=== PATIENT | female | born 1930 | race Caucasian/White ===

== ENCOUNTER → 2016-04-22 | Outpatient (CLI) | payer MEDICARE, BC ==
[~2016-04-22] MED LIST: ALLEGRA 180MG180 MG PO; ASPIRIN E.C. 8181 MG PO; ATENOLOL25 MG PO; ATENOLOL50 MG PO; CETIRIZINE PO; COZAAR100 MG PO; FLONASE ALLERG9.9 ML NS; FLONASE0.05 MG/AC NS; GOOD SENSE ASPI81 M1 PO; ISOSORBIDE DINI30 M1 PO; NORCO 325 MG-51 TA1 PO; PLAVIX 75MG TAB75 MG PO; PRAVACHOL 20MG20 MG PO; PRAVACHOL20 MG PO; PROAIR HFA0.09 MG/AC IH; REQUIP0.25 M1 PO; TESSALON P100 MG/CAP PO; TYLENOL 500MG500 MG PO; TYLENOL EXTRA500 M1 PO; XANAX0.25 MG PO
== END ==
LOC: MAMMO 09:56
DX: Z12.31 Encounter for screening mammogram for malignant neoplasm of breast (principal)
CPT/HCPCS: G0202

== ENCOUNTER → 2016-04-22 | Outpatient (CLI) | payer MEDICARE, BC | LOC: RAD 10:01 | DX: Z13.820 Encounter for screening for osteoporosis (principal); I89.0 Lymphedema, not elsewhere classified; M81.0 Age-related osteoporosis without current pathological fracture; M85.851 Other specified disorders of bone density and structure, right thigh ==

== ENCOUNTER → 2016-05-17 | Outpatient (CLI) | payer MEDICARE, BC | LOC: RAD 14:54 | DX: M54.42 Lumbago with sciatica, left side (principal); G89.29 Other chronic pain; R93.7 Abnormal findings on diagnostic imaging of other parts of musculoskeletal system ==

== ENCOUNTER 2016-05-22 18:54 | Emergency (ER) | payer MEDICARE, BC ==
[~2016-05-22 18:54] MED LIST changes: -ASPIRIN E.C. 8181 MG PO; -ATENOLOL50 MG PO; -CETIRIZINE PO; -COZAAR100 MG PO; -FLONASE ALLERG9.9 ML NS; -ISOSORBIDE DINI30 M1 PO; -PLAVIX 75MG TAB75 MG PO; -PRAVACHOL 20MG20 MG PO; -PROAIR HFA0.09 MG/AC IH; -REQUIP0.25 M1 PO; -TYLENOL 500MG500 MG PO
[2016-05-22] MEDS ORDERED: ATENOLOL50 MG PO (19:38)
[2016-05-22] MEDS ORDERED: PLAVIX 75MG TAB75 MG PO (19:38)
[2016-05-22] MEDS ORDERED: ISOSORBIDE DINI30 M1 PO (19:39)
[2016-05-22] MEDS ORDERED: ASPIRIN E.C. 8181 MG PO (19:40)
[2016-05-22] MEDS ORDERED: PRAVACHOL 20MG20 MG PO (19:40)
[2016-05-22] MEDS ORDERED: COZAAR100 MG PO (19:41)
[2016-05-22] MEDS ORDERED: REQUIP0.25 M1 PO (19:41)
[2016-05-22] MEDS ORDERED: TYLENOL 500MG500 MG PO (19:42)
[2016-05-22] MEDS ORDERED: FLONASE ALLERG9.9 ML NS (19:42)
[2016-05-22] MEDS ORDERED: CETIRIZINE PO (19:42)
[2016-05-22] MEDS ORDERED: PROAIR HFA0.09 MG/AC IH (19:43)
[2016-05-22 20:58] VITALS: BP 195/95
== END 2016-05-22 21:07 | disposition home or self-care (01) ==
LOC: ED 18:54
DX: K59.00 Constipation, unspecified (principal)

== ENCOUNTER → 2017-08-24 | Outpatient (CLI) | payer MEDICARE, BC ==
[~2017-08-24] MED LIST changes: +ASPIRIN E.C. 8181 MG PO; +ATENOLOL50 MG PO; +CETIRIZINE PO; +COZAAR100 MG PO; +FLONASE ALLERG9.9 ML NS; +ISOSORBIDE DINI30 M1 PO; +PLAVIX 75MG TAB75 MG PO; +PRAVACHOL 20MG20 MG PO; +PROAIR HFA0.09 MG/AC IH; +REQUIP0.25 M1 PO; +TYLENOL 500MG500 MG PO
== END ==
LOC: RAD 09:28
DX: R22.41 Localized swelling, mass and lump, right lower limb (principal)

== ENCOUNTER 2018-04-18 10:00 | Outpatient (RCR) | payer MEDICARE, BC | END 2018-04-18 10:30 | disposition home or self-care (01) | LOC: PT 10:00 | DX: R53.1 Weakness (principal) | CPT/HCPCS: G8978-GP; G8979-GP ==

== ENCOUNTER 2018-10-30 22:12 | Emergency (ER) | payer MEDICARE, BC ==
[~2018-10-30] VITALS: Ht 167.6 cm; Wt 88.6 kg
[~2018-10-30 22:12] MED LIST changes: +ATROVENT NASAL15 ML NS; +CEFDINIR300 MG PO; +FOSAMAX 70MG TA70 MG PO; +FUROSEMIDE40 MG PO; +IPRATROPIUM BROM3 M1 IH; +MASON NATURAL2000 IU PO; +PREDNISONE10 MG PO; +TRUNEB NEBULIZ1 EACH MC
[2018-10-30] MEDS ORDERED: SYMBICORT1 AE3 IH (23:51)
[2018-10-30] MEDS ORDERED: CALCIUM CARBON650 M2 PO (23:52)
[2018-10-30] MEDS ORDERED: NITROSTAT0.4 M1 SL (23:54)
[2018-10-30] MEDS ORDERED: SINGULAIR PO (23:54)
[2018-10-31] MEDS ORDERED: CATAPRES0.1 M1 PO (00:43)
[2018-10-31 00:56] VITALS: BP 148/78
== END 2018-10-31 00:56 | disposition home or self-care (01) ==
LOC: ED 22:12
DX: I11.0 Hypertensive heart disease with heart failure (principal); I25.10 Atherosclerotic heart disease of native coronary artery without angina pectoris; I50.9 Heart failure, unspecified; J44.9 Chronic obstructive pulmonary disease, unspecified; Z90.710 Acquired absence of both cervix and uterus; Z90.49 Acquired absence of other specified parts of digestive tract; Z79.02 Long term (current) use of antithrombotics/antiplatelets; Z79.82 Long term (current) use of aspirin; Z79.51 Long term (current) use of inhaled steroids

== ENCOUNTER → 2019-11-07 | Outpatient (CLI) | payer MEDICARE, BC ==
[~2019-11-07] MED LIST changes: +CALCIUM CARBON650 M2 PO; +CATAPRES0.1 M1 PO; +NITROSTAT0.4 M1 SL; +SINGULAIR PO; +SYMBICORT1 AE3 IH
== END ==
LOC: MAMMO 09:15
DX: Z13.820 Encounter for screening for osteoporosis (principal); M81.0 Age-related osteoporosis without current pathological fracture; M85.851 Other specified disorders of bone density and structure, right thigh

== ENCOUNTER 2020-04-06 13:10 | Emergency (ER) | payer MEDICARE, BC ==
[~2020-04-06] VITALS: Ht 162.6 cm; Wt 87.3 kg
[~2020-04-06 13:10] MED LIST changes: +CLOPIDOGREL PO; -PLAVIX 75MG TAB75 MG PO
[2020-04-06 13:52] LABS: BASO # 0.2 (0.02-0.10); HEMATOCRIT 36.7 % (37.0-47.0); HEMOGLOBIN 11.7 g/dL (12.5-16.0); LYMPH# 1.6 (1.50-4.00); MEAN CELL VOLUME 93 fl (78-100); MEAN CORPUSCULAR HEMOGLOBIN 30 pg (27-31); MEAN CORPUSCULAR HGB CONC 32 g/dL (33-37); MEAN PLATELET VOLUME 9.3 fl (7.4-10.4); MONO # 1.2 (0.20-0.80); NEU # 6.6 (1.40-6.50); PLATELET COUNT 261 K/mm3 (130-400); RED BLOOD COUNT 3.93 M/mm3 (4.10-5.30); RED CELL DISTRIBUTION WIDTH 12.6 % (11.5-14.5); WHITE BLOOD COUNT 10.4 K/mm3 (4.8-10.8)
[2020-04-06 13:55] LABS: EOS # 0.8 (0.04-0.40)
[2020-04-06 14:03] LABS: ALBUMIN 3.4 g/dL (3.4-4.8)
[2020-04-06 14:04] LABS: POTASSIUM 3.9 mmol/L (3.5-5.1)
[2020-04-06 14:06] LABS: TOTAL PROTEIN 5.7 g/dL (6.2-8.1)
[2020-04-06 14:08] LABS: TOTAL BILIRUBIN 0.4 mg/dL (0.2-1.2)
[2020-04-06 14:18] LABS: TROPONIN-I 0.05 ng/mL (<0.030)
[2020-04-06 14:26] LABS: D-DIMER 0.85 mg/L FEU (0.15-0.50)
[2020-04-06] MEDS ORDERED: ED TYLENOL6 UDTAB/BO PO (14:46)
[2020-04-06] MEDS ORDERED: CLONIDINE HYDR0.1 MG PO (14:50)
[2020-04-06] MEDS ORDERED: ISOSORBIDE MON120 MG PO (14:51)
[2020-04-06] MEDS ORDERED: SYMBICORT1 AE3 IH (14:55)
[2020-04-06] MEDS ORDERED: ACETAMINOPHEN500 M5 PO (15:03)
[2020-04-06 17:18] LABS: PARTIAL THROMBOPLASTIN TIME 24.3 SECONDS (21.0-32.0); PROTHROMBIN TIME 10.3 SECONDS (9.0-12.0)
[2020-04-06 17:34] LABS: URINE APPEARANCE CLEAR; URINE BILIRUBIN NEGATIVE (NEGATIVE); URINE BLOOD TRACE (NEGATIVE); URINE COLOR YELLOW; URINE GLUCOSE NEGATIVE (NEGATIVE); URINE KETONE NEGATIVE (NEGATIVE); URINE LEUKOCYTE ESTERASE NEGATIVE (NEGATIVE); URINE NITRATE NEGATIVE (NEGATIVE); URINE PROTEIN(semi-quant) TRACE mg/dL (NEGATIVE); URINE UROBILINOGEN NORMAL (NORMAL); URINE WBC 0-1 /hpf (0-3)
[2020-04-07 11:21] VITALS: BP 112/61
== END 2020-04-07 10:30 | disposition other institution (70) ==
LOC: ED 13:10
PROVIDERS: Family Medicine
DX: I48.91 Unspecified atrial fibrillation (principal); R06.02 Shortness of breath; R74.8 Abnormal levels of other serum enzymes; R79.1 Abnormal coagulation profile; I25.10 Atherosclerotic heart disease of native coronary artery without angina pectoris; I10 Essential (primary) hypertension; J45.909 Unspecified asthma, uncomplicated; J44.9 Chronic obstructive pulmonary disease, unspecified; Z20.828 Contact with and (suspected) exposure to other viral communicable diseases; Z79.02 Long term (current) use of antithrombotics/antiplatelets; Z79.82 Long term (current) use of aspirin; Z79.51 Long term (current) use of inhaled steroids
CPT/HCPCS: J1644; J7040; Q9967

== ENCOUNTER 2020-04-07 10:33 | Inpatient (IN) | payer MEDICARE, BC ==
[2020-04-07] VITALS (8 sets, daily range): BP systolic 82–146; BP diastolic 54–78
[~2020-04-07 10:33] MED LIST changes: +ACETAMINOPHEN500 M5 PO; +CLONIDINE HYDR0.1 MG PO; +ED TYLENOL6 UDTAB/BO PO; +ISOSORBIDE MON120 MG PO
--- NOTE | 2020-04-07 13:05 | NUR ---
BP 82/54. Lesley Rogers PA-C notified. Orders to stop cardizem drip now, start NS at ordered rate.
--- NOTE | 2020-04-07 19:20 | NUR ---
Report received from Melissa BONILLA. Patient up in recliner watching TV. A/O x4. Denies pain, SOB or cough. TELE in place NSR, rate in the 80's. INT patent x2 in LFA and flushes easily with NS. Lungs CTA. ABD SND, BS + x4. Does requests colace with HS medications. Continues with 2-3+ edema to BLE. Legs elevated in chair. Chair alarm on. Call light in reach.
[2020-04-08] VITALS (9 sets, daily range): BP systolic 93–147; BP diastolic 56–80
--- NOTE | 2020-04-08 00:43 | NUR ---
B/P 122/79. Sleeping, awakened by staff for PIETER Hassan. Takes without difficulty. Up to BR with SBA and cane. Gait steady. Voids 700 ML of clear yellow urine. Assisted back to bed. Denies pain or needs. Bed alarm on. Call light in reach.
--- NOTE | 2020-04-08 02:45 | NUR ---
B/P 115/62 after PO Cardizem given around 0030. Rests well. HR NSR at controlled rate.
[2020-04-08 06:08] LABS: HEMATOCRIT 39.7 % (37.0-47.0); HEMOGLOBIN 12.8 g/dL (12.5-16.0); MEAN CELL VOLUME 94 fl (78-100); MEAN CORPUSCULAR HEMOGLOBIN 30 pg (27-31); MEAN CORPUSCULAR HGB CONC 32 g/dL (33-37); MEAN PLATELET VOLUME 9.6 fl (7.4-10.4); PLATELET COUNT 311 K/mm3 (130-400); RED BLOOD COUNT 4.23 M/mm3 (4.10-5.30); WHITE BLOOD COUNT 8.7 K/mm3 (4.8-10.8)
[2020-04-08 06:29] LABS: ALBUMIN 3.5 g/dL (3.4-4.8); POTASSIUM 3.5 mmol/L (3.5-5.1)
[2020-04-08 06:30] LABS: CALCIUM 8.1 mg/dL (8.3-10.5)
[2020-04-08 06:32] LABS: TOTAL PROTEIN 6.1 g/dL (6.2-8.1)
[2020-04-08 06:33] LABS: TOTAL BILIRUBIN 0.4 mg/dL (0.2-1.2)
[2020-04-08 06:37] LABS: LYMPHOCYTE 21 % (20-51); MONOCYTE 12 % (3-10); NEUTROPHILS 55 % (42-75)
--- NOTE | 2020-04-08 06:58 | NUR ---
Report to Maria Esther BONILLA.
--- NOTE | 2020-04-08 07:40 | NUR ---
Lesley Rogers PA-C notified of monitor worker showing A-Fib. Patient denies pain. Denies dizziness or shortness of breath. Patient is unaware of any changes in heart rhythm, states that she is feeling good this morning.
--- NOTE | 2020-04-08 09:35 | NUR ---
Contacted patient's son Francheska to update him on patient condition and plan of care. All questions answered at this time.
--- NOTE | 2020-04-08 09:48 | NUR ---
Contacted patient's son Zachery White for update on patients condition and plan of care. All questions answered at this time.
--- NOTE | 2020-04-08 10:54 | NUR ---
Lesley Rogers PA-C at bedside.
--- NOTE | 2020-04-08 11:30 | NUR ---
monitor and storage bin tender shows sinus tachycardia at this time. Lesley Rogers PA-C notified. Hold IV cardizem at this time per Lesley Rogers PA-C. Patient notified.
--- NOTE | 2020-04-08 11:39 | NUR ---
Plan to transfer patient to [facility]. A VIOLA Rogers at bedside to update patient on plan of care.
--- NOTE | 2020-04-08 13:15 | NUR ---
Report called to Christina, nurse at [facility].
--- NOTE | 2020-04-08 13:55 | NUR ---
Contacted [facility] for transfer to [facility] room #[id number]. Per Lyndon, approximately 45 min wait.
--- NOTE | 2020-04-08 14:50 | NUR ---
Cardizem drip rate increased to 10mg/hr.
--- NOTE | 2020-04-08 15:19 | NUR ---
Patient alert and oriented. Denies pain. Denies dizziness or shortness of breath. Patient transferred to [facility] by EMS. INT to left AC. Cardizem infusing through IV to left forearm at 10mg/hr. pull over shows sinus tachycardia. Out of facility with EMS via stretcher at this time. nurse Christina at [facility] notified that patient has left this facility.
== END 2020-04-08 15:19 | disposition short-term general hospital (02) | DRG 309 ==
LOC: MED/SURG 10:33
PROVIDERS: ADMIT Physician Assistant
DX: I48.91 Unspecified atrial fibrillation (principal); E87.1 Hypo-osmolality and hyponatremia; I10 Essential (primary) hypertension; E78.5 Hyperlipidemia, unspecified; R79.89 Other specified abnormal findings of blood chemistry; Z79.82 Long term (current) use of aspirin; Z79.02 Long term (current) use of antithrombotics/antiplatelets; Z96.653 Presence of artificial knee joint, bilateral; Z90.710 Acquired absence of both cervix and uterus; Z88.0 Allergy status to penicillin; Z88.2 Allergy status to sulfonamides; Z88.1 Allergy status to other antibiotic agents; Z88.8 Allergy status to other drugs, medicaments and biological substances
CPT/HCPCS: J1650; J7030